=== PATIENT | female | born 1975 | race Caucasian/White ===

== ENCOUNTER 2017-01-30 20:44 | Emergency (ER) | payer OTHER ==
[~2017-01-30] VITALS: Ht 172.7 cm; Wt 125.0 kg
[2017-01-30 20:52] VITALS: BP 110/54; PULSE 71; RESP 20; O2SAT 98
[2017-01-30] MEDS ORDERED: methylPREDNISolone SOD SUCC 125 MG/2 ML VIAL IV PUSH ONE (21:00)
[2017-01-30] MEDS ORDERED: RANITIDINE HCL SYRUP 150 MG/10 ML UDC PO ONE (21:00)
--- NOTE | 2017-01-30 21:00 | PD ---
HPI Chief Complaint: Allergic/Adverse Reaction Time Seen by Provider: 20:51 Travel History International Travel<30 days: No Contact w/Intl Traveler<30days: No Traveled to known affect area: No History of Present Illness HPI 41-year-old female with history of diabetes presents emergency department for evaluation of an allergic reaction. Patient states she has been getting these intermittently over the last several months. She has seen an dairy nutrition specialist and a primary care provider without any answers. She was eating tonight when her hands became very red and swollen. She states that her entire body starts to itch. She states episodes typically last about 45 minutes. She took 2 Benadryl prior to arrival. Denies any difficulty breathing but does feel as though her lips are swelling. She has no other symptoms to report. PFSH Past Medical History Diabetes: Yes Patient Takes Glucophage: No Tetanus Vaccination: Never Vaccinated Influenza Vaccination: No ?: Not : 2 Para: 2 Tubal Ligation: Yes Past Surgical History Surgical History: No Previous Surgery Social History Alcohol Use: No Tobacco Use: No Substance Use: No Allergies-Medications (Allergen,Severity, Reaction): Coded Allergies: No Known Allergies (Unverified , 01/30/17) Reported Meds & Prescriptions Reported Meds & Active Scripts Active Reported [ flecainide] 25 Mg PO DAILY Metoprolol Tartrate 25 Mg Tab 25 Mg PO DAILY Zetia (Ezetimibe) 10 Mg Tab 10 Mg PO DAILY Lisinopril 10 Mg Tab 10 Mg PO DAILY Janumet (Sitagliptin-Metformin) 50-500 Mg Tab 1 Tab PO BID Review of Systems Except as stated in HPI: all other systems reviewed are Neg Physical Exam Narrative GENERAL: Obese female patient, no acute distress SKIN: Focused skin assessment warm/dry. Slight glandular erythema to the bilateral upper extremity. No definitive rash. HEAD: Normocephalic. Atraumatic EYES: No scleral icterus. No injection or drainage. ENT: Mucosa pink and moist. No erythema or exudates. No uvular edema. No uvular , palatal, or tonsillar deviation. Airway patent. Nasal turbinates appear normal without nasal blood, purulent drainage or septal hematoma. Mild lower lip edema. NECK: Supple, trachea midline. No JVD or lymphadenopathy. CARDIOVASCULAR: Regular rate and rhythm without murmurs, gallops, or rubs. RESPIRATORY: Breath sounds equal bilaterally. No accessory muscle use. GASTROINTESTINAL: Abdomen soft, non-tender, nondistended. MUSCULOSKELETAL: No cyanosis, or edema. BACK: Nontender without obvious deformity. No CVA tenderness. Data Data Last Documented VS Vital Signs Date Time Temp Pulse Resp B/P (MAP) Pulse Ox O2 Delivery O2 Flow Rate FiO2 01/30/17 20:52 71 20 110/54 (72) 98 Orders Orders Ranitidine Liq (Zantac Liq) (01/30/17 21:00) Methylprednisolone So Succ Inj (Solumedr (01/30/17 21:00) MDM Medical Decision Making Medical Screen Exam Complete: Yes Emergency Medical Condition: Yes Medical Record Reviewed: Yes Differential Diagnosis Allergic reaction versus anaphylaxis versus atypical histamine response versus anxiety Narrative Course 41-year-old female presents to emergency department for evaluation. Patient is having an episode similar to an allergic reaction that she has had multiple over the last few months. Patient appears without distress. She does have some mild edema of the hands with associated glandular erythema of the upper extremities. Her lower lip is slightly edematous. Patient took Benadryl prior to arrival. She states she is starting to feel better now. She is given Solu- Medrol and Zantac. She is observed. Patient verbalizes marked improvement in her symptoms upon reassessment,. She will be discharged at this time. Diagnosis Primary Impression: Allergic reaction Qualified Codes: T78.40XA - Allergy, unspecified, initial encounter Referrals: Primary Care Physician Patient Instructions: Anaphylaxis (ED), General Instructions Additional Instructions: Avoid scratching Continue benadryl as prescribed as directed on the package Return to ED with acute worsening of symptoms Med/Other Pt SpecificInfo: No Change to Meds Disposition: 01 DISCHARGE HOME Condition: Stable Edda De Luna ADE Jan 30, 2017 21:00
[2017-01-30] MEDS ORDERED: JANU50TA4 PO (21:03)
[2017-01-30] MEDS ORDERED: ZETI10TA5 PO (21:03)
[2017-01-30] MEDS ORDERED: LISI10TA3 PO (21:03)
[2017-01-30] MEDS ORDERED: METO25TA3 PO (21:03)
[2017-01-30] MEDS ORDERED: flecainide PO (21:03)
[2017-01-31] MEDS ORDERED: FLEC1TAB8 PO (18:27)
== END 2017-01-30 22:01 | disposition home or self-care (01) ==
LOC: NEPD 20:44
DX: T78.40XA Allergy, unspecified, initial encounter (principal)
CPT/HCPCS: 96374; 99284; J2930